=== PATIENT | female | born 1960 | race Caucasian/White ===

== ENCOUNTER 2018-06-24 15:51 | Observation (INO) | payer OTHER ==
[2018-06-24] MEDS ORDERED: Sodium Chloride 0.9% 10 ML Syringe FLUSH PRN (15:55)
--- NOTE | 2018-06-24 16:20 | EDM.PDOC ---
ED HPI GENERAL MEDICAL PROBLEM - General Chief Complaint: General Time Seen by Provider: 06/24/18 15:51 Source of Information: Reports: Patient History Limitations: Reports: No Limitations - History of Present Illness INITIAL COMMENTS - FREE TEXT/NARRATIVE: Pt. presents to ER with complaints of R sided facial paresthesia. Pt. states that she was at work today at [employer] at the onset of symptoms. Denies any recent head trauma. Pt. had a CVA involving the L basal ganglia 05/22/18. She was admitted to [facility] at the time. She did not receive any TPA at that time and did not undergo any intervention from a neurological standpoint. In reviewing her chart, it appears that there was no large vessel ischemia noted. The pt. has a history of factor 5 leiden and has a history of previous subclavian DVT. Pt. was started on baby aspirin and lipitor at discharge. She has yet to follow-up with neurology but is scheduled to in the near future. Pt. has been doing PT and states that the symptoms have been gradually improving. She states that today at approx. 1430 PM she developed increased paresthesia to R side of face and hand as well as nausea. The symptoms quickly resolved. She subsequently came to the clinic and had another similar episode whilst she was waiting to be seen in the clinic lobby. Pt. was brought to the ER , and her symptoms had resolved by the time she got here. She has had no increase in weakness, difficulty with speech, ambulation or increased facial numbness since she arrived to the ER (other than the paresthesia that she has been experiencing since the initial event). Onset: Today Onset Time: 14:30 Location: Reports: Head, Generalized Associated Symptoms: Reports: Nausea/Vomiting - Related Data Allergies Allergy/AdvReac Type Severity Reaction Status Date / Time Penicillins Allergy Rash Verified 06/24/18 16:00 Home Meds: Home Meds Aspirin [Ecotrin] 325 mg PO BEDTIME #100 tab.ec 06/11/13 [Rx] Enoxaparin [Lovenox] 40 mg SUBCUT DAILY #30 syringe 06/11/13 [Rx] ED ROS GENERAL - Review of Systems Review Of Systems: See Below Constitutional: Reports: No Symptoms HEENT: Reports: No Symptoms Respiratory: Reports: No Symptoms Cardiovascular: Reports: No Symptoms Endocrine: Reports: No Symptoms GI/Abdominal: Reports: No Symptoms : Reports: No Symptoms Musculoskeletal: Reports: No Symptoms Skin: Reports: No Symptoms Neurological: Reports: Paresthesia (R side of face/R hand), Tingling, Other Psychiatric: Reports: No Symptoms Hematologic/Lymphatic: Reports: No Symptoms Immunologic: Reports: No Symptoms ED EXAM, GENERAL - Physical Exam Exam: See Below Exam Limited By: No Limitations General Appearance: Alert, WD/WN, No Apparent Distress Eye Exam: Bilateral Eye: EOMI, Normal Fundi, Normal Inspection Throat/Mouth: Normal Inspection, Normal Lips, Normal Teeth, Normal Gums, Normal Oropharynx, Normal Voice, No Airway Compromise Head: Atraumatic, Normocephalic Neck: Normal Inspection, Supple, Non-Tender, Full Range of Motion Respiratory/Chest: No Respiratory Distress, Lungs Clear, Normal Breath Sounds, No Accessory Muscle Use, Chest Non-Tender Cardiovascular: Normal Peripheral Pulses, Regular Rate, Rhythm, No Edema, No Gallop, No JVD, No Murmur, No Rub Peripheral Pulses: 4+: Radial (L), Radial (R), Posterior Tibial (L), Posterior Tibial (R) GI/Abdominal: Soft, Non-Tender, No Organomegaly, No Distention, No Mass (Female) Exam: Deferred Rectal (Female) Exam: Deferred Back Exam: Normal Inspection, Full Range of Motion Extremities: Normal Inspection, Normal Range of Motion, Non-Tender, No Pedal Edema, Normal Capillary Refill Neurological: Alert, Oriented, Normal Cognition, Sensory/Motor Deficit ( paresthesia to R side of face and R hand, no increase from previous at this time. NIH is 1.) Psychiatric: Normal Affect, Normal Mood Skin Exam: Warm, Dry, Intact, Normal Color, No Rash Lymphatic: No Adenopathy EKG INTERPRETATION Rhythm: NSR Rudyard: Normal P-Wave: Present QRS: Normal ST-T: Normal QT: Normal Course - Vital Signs Last Recorded V/S: Last Vital Signs Temp 36.8 C 06/24/18 15:51 Pulse 71 06/24/18 17:21 Resp 14 06/24/18 17:21 BP 152/96 H 06/24/18 17:21 Pulse Ox 97 06/24/18 17:21 - Orders/Labs/Meds Orders: Active Orders 24 hr Category Date Time Status EKG Documentation Completion [RC] STAT Care 06/24/18 15:56 Active Ang Head [CT] Stat Exams 06/24/18 17:18 Ordered Ang Neck [CT] Stat Exams 06/24/18 17:18 Ordered Sodium Chloride 0.9% [Saline Flush] Med 06/24/18 15:55 Active 10 ml FLUSH ASDIRECTED PRN Peripheral IV Insertion Adult [OM.PC] Routine Oth 06/24/18 15:56 Ordered Medication Orders Sodium Chloride (Normal Saline) 1,000 mls @ 100 mls/hr IV ASDIRECTED CHRIS Sodium Chloride (Saline Flush) 10 ml FLUSH ASDIRECTED PRN PRN Reason: Keep Vein Open Labs: Laboratory Tests 06/24/18 06/24/18 06/24/18 Range/Units 16:17 16:17 16:17 WBC 4.5 (4.0-10.0) x10^3/uL RBC 4.40 (4.00-5.50) x10^6/uL Hgb 13.6 (12.0-16.0) g/dL Hct 39.8 (33.0-47.0) % MCV 90.5 (78.0-93.0) fL MCH 30.9 (26.0-32.0) pg MCHC 34.2 (32.0-36.0) g/dL RDW Coeff of Osbaldo 12.4 (10.0-15.0) % Plt Count 260 (130-400) x10^3/uL Neut % (Auto) 64.0 (50.0-80.0) % Lymph % (Auto) 26.3 (25.0-50.0) % [place] % (Auto) 6.9 (2.0-11.0) % Eos % (Auto) 2.4 (0.0-4.0) % Baso % (Auto) 0.4 (0.2-1.2) % PT 10.2 (9.6-11.4) SEC INR 1.0 L (2.0-3.5) Sodium 143 (136-145) mmol/L Potassium 3.7 (3.5-5.1) mmol/L Chloride 104 (98-107) mmol/L Carbon Dioxide 29 (21-32) mmol/L Anion Gap 13.7 (10-20) mmol/L BUN 15 (7-18) mg/dL Creatinine 0.9 (0.55-1.02) mg/dL Est Cr Clr Drug Dosing TNP Estimated GFR (MDRD) > 60 Glucose 137 H (74-106) mg/dL Calcium 9.3 (8.5-10.1) mg/dL Corrected Calcium 9.30 (8.5-10.1) mg/dL Phosphorus 3.2 (2.6-4.7) mg/dL Magnesium 2.1 (1.8-2.4) mg/dL Total Bilirubin 0.5 (0.2-1.0) mg/dL AST 23 (15-37) U/L ALT 46 (14-59) U/L Alkaline Phosphatase 58 (46-116) U/L Troponin I < 0.017 (<=0.056) ng/mL Total Protein 7.4 (6.4-8.2) g/dL Albumin 4.0 (3.4-5.0) g/dL Globulin 3.4 Albumin/Globulin Ratio 1.18 Meds: Medications Generic Name Dose Route Start Last Admin Trade Name Freq PRN Reason Stop Dose Admin Sodium Chloride 1,000 mls @ 100 mls/hr 06/24/18 17:45 Normal Saline IV ASDIRECTED CHRIS Sodium Chloride 10 ml 06/24/18 15:55 Saline Flush FLUSH ASDIRECTED PRN Keep Vein Open Departure - Departure Time of Disposition: 17:36 Disposition: Refer to Observation Clinical Impression: TIA (transient ischemic attack) - Discharge Information - Problem List Review Problem List Initiated/Reviewed/Updated: Yes - My Orders Last 24 Hours: My Active Orders 06/24/18 15:55 Sodium Chloride 0.9% [Saline Flush] 10 ml FLUSH ASDIRECTED PRN 06/24/18 15:56 EKG Documentation Completion [RC] STAT Peripheral IV Insertion Adult [OM.PC] Routine 06/24/18 17:18 Ang Head [CT] Stat Ang Neck [CT] Stat - Assessment/Plan Last 24 Hours: My Active Orders 06/24/18 15:55 Sodium Chloride 0.9% [Saline Flush] 10 ml FLUSH ASDIRECTED PRN 06/24/18 15:56 EKG Documentation Completion [RC] STAT Peripheral IV Insertion Adult [OM.PC] Routine 06/24/18 17:18 Ang Head [CT] Stat Ang Neck [CT] Stat Plan: Spoke with Dr. Broderick at [facility]. He advised performing a CT angiogram of the brain as an inpatient and admitting for observation. She is a code 1. Will be HOB less than 30 degree elevation. Permissive hypertension at this point. Advised no change to medications at this time and reevaluating in the AM. Neuro checks every 2 hours. Lovenox for DVT prophylaxis. Should her symptoms worsen, she will need to be transferred. She is not a candidate for TPA due to her recent CVA.
[2018-06-24 16:48] LABS: CHLORIDE,CL 104 mmol/L (98-107); SODIUM,NA 143 mmol/L (136-145)
[2018-06-24 16:49] LABS: ANION GAP 13.7 mmol/L (10-20)
--- NOTE | 2018-06-24 17:05 | CT ---
[id number] CT/CT Head WO IV EXAM: CT Head WO IV CLINICAL DATA: RIGHT SIDED FACIAL NUMBNESS,RECENT HISTORY OF CVA. COMPARISON STUDY: May 2013. FINDINGS: No intracranial hemorrhage, extra-axial fluid collection, mass, or acute ischemia. No hydrocephalus. Paranasal sinuses and mastoid air cells are clear. IMPRESSION: Negative examination of the brain. Aguila Rodríguez MD 06/24/18 [id number] Thank you for allowing us to participate in the care of your patient.
[2018-06-24] MEDS ORDERED: Iopamidol 612 MG/ML 100 ML Bottle IVPUSH ONE (17:57)
[2018-06-24] MEDS: Sodium Chloride 0.9% 1,000 ML IV SCH (18:10)
[2018-06-24] MEDS ORDERED: Enoxaparin 40 MG/0.4 ML Syringe SUBCUT SCH (18:45)
[2018-06-24] MEDS ORDERED: atorvaSTATin 40 MG Tab PO SCH (20:00)
[2018-06-24] MEDS ORDERED: Aspirin 81 MG Tab.EC PO SCH (20:00)
--- NOTE | 2018-06-24 20:30 | CT ---
[id number] CT/CTA Head EXAM: CTA Head CLINICAL DATA: RIGHT-SIDED FACIAL AND HAND NUMBNESS. COMPARISON STUDY: CT from today. FINDINGS: Negative for acute large vessel occlusion, stenosis, aneurysm, or dissection. Soft tissues of the neck are unremarkable. Lung apices and screw mediastinum are also unremarkable. Mild/moderate changes of cervical spondylosis. IMPRESSION: Negative angiographic examination of the head and neck. Aguila Rodríguez MD 06/24/182026 Thank you for allowing us to participate in the care of your patient.
[2018-06-24] MEDS ORDERED: diphenhydrAMINE 25 MG Cap PO STA (22:36)
[2018-06-25] MEDS: Sodium Chloride 0.9% 1,000 ML IV SCH (02:09)
[2018-06-25] MEDS ORDERED: Vitamin E (dl-alpha-tocopherol acetate) 400 Unit Cap PO SCH (08:00)
[2018-06-25] MEDS ORDERED: Ascorbic Acid 500 MG Tab PO SCH (08:00)
[2018-06-25] MEDS ORDERED: atorvaSTATin 40 MG Tab PO SCH (08:00)
[2018-06-25] MEDS ORDERED: Aspirin 81 MG Tab.EC PO SCH (08:00)
[2018-06-25] MEDS ORDERED: Venlafaxine 37.5 MG Cap.ER PO SCH (08:00)
[2018-06-25] MEDS ORDERED: Calcium Carbonate/Vitamin D3 1250 MG-200 Unit Tab PO SCH (08:00)
[2018-06-25] MEDS ORDERED: Multivitamin, Stress Formula with Zinc Tab PO SCH (08:00)
--- NOTE | 2018-06-25 10:27 | PCM.DCSUM1 ---
Discharge Summary - Hospital Course Brief History: Patient admitted for observation after numbness to right side of her face. History of ischemic stroke in April. CTA of head and neck performed which was negative for acute activity. Symptoms have resolved and patient has negative neuro checks and is ready to be discharged home Diagnosis: Stroke: Yes Modified Almont Scale: No Signif.Disability Despite Sympt.Able to Carry Out Usual Act./Duties Modified Almont Scale Score: 1 - Discharge Data Discharge Date: 06/25/18 Discharge Disposition: Home, Self-Care 01 Condition: Good - Discharge Diagnosis/Problem(s) (1) Factor V Leiden mutation SNOMED Code(s): 448677430 ICD Code: D68.51 - ACTIVATED PROTEIN C RESISTANCE Status: Acute Current Visit: No (2) TIA (transient ischemic attack) SNOMED Code(s): 328259837 ICD Code: G45.9 - TRANSIENT CEREBRAL ISCHEMIC ATTACK, UNSPECIFIED Status: Acute Current Visit: Yes - Patient Summary/Data Recommended Follow-up Testing/Procedures: Make sure to keep your primary care and neurology appointments and schedule additional appointment as needed Make sure to get to your echocardiogram this week - Patient Instructions Diet: Heart Healthy Diet Activity: No Strenuous Activities, Rest and Relax Today Activity, Other: No work this week. Slowly return to work as you are able. Showering/Bathing: May Shower Other/Special Instructions: You need to allow your body to fully heal and recover from the damage you had from your stroke in April. If not you do run the risk of bringing on additional symptoms like you experienced yesterday. No work this week and slowly return as you feel you are able with no more than half days to start with. - Discharge Plan *PRESCRIPTION DRUG MONITORING PROGRAM REVIEWED*: Not Applicable *COPY OF PRESCRIPTION DRUG MONITORING REPORT IN PATIENT ATTILA: Not Applicable Home Medications: Home Meds Ascorbate Calcium [Vitamin C] 500 mg PO DAILY 06/24/18 [History] Aspirin 81 mg PO DAILY 06/24/18 [History] Calcium Carbonate/Vitamin D2 [Oyster Shell Calcium-Vit D Tab] 1 each PO DAILY [History] Multivitamin [Multivitamins] 1 each PO DAILY 06/24/18 [History] Venlafaxine [Effexor XR 24 Hr] 37.5 mg PO DAILY 06/24/18 [History] Vitamin E 400 unit PO DAILY 06/24/18 [History] atorvaSTATin Calcium [Lipitor] 40 mg PO DAILY 06/24/18 [History] Forms: ED Department Discharge Referrals: Tresa Melendez MD [Primary Care Provider] - - Discharge Summary/Plan Comment DC Time >30 min.: Yes - General Info Date of Service: 06/25/18 Admission Dx/Problem (Free Text: transient ischemic attack Functional Status: Reports: Pain Controlled - Review of Systems General: Reports: No Symptoms HEENT: Reports: No Symptoms Pulmonary: Reports: No Symptoms Cardiovascular: Reports: No Symptoms Gastrointestinal: Reports: No Symptoms Genitourinary: Reports: No Symptoms Musculoskeletal: Reports: No Symptoms Skin: Reports: No Symptoms Neurological: Reports: No Symptoms Psychiatric: Reports: No Symptoms - Patient Data Vitals - Most Recent: Last Vital Signs Temp 36.3 C 06/25/18 06:00 Pulse 75 06/25/18 06:00 Resp 16 06/25/18 06:00 BP 151/78 H 06/25/18 06:00 Pulse Ox 99 06/25/18 06:00 Weight - Most Recent: 80.286 kg I&O - Last 24 hours: Intake & Output 06/24/18 06/25/18 06/25/18 22:59 06:59 14:59 Intake Total 1539 180 Output Total 1700 Balance -161 180 Lab Results - Last 24 hrs: Laboratory Results - last 24 hr 06/24/18 06/24/18 06/24/18 Range/Units 16:17 16:17 16:17 WBC 4.5 (4.0-10.0) x10^3/uL RBC 4.40 (4.00-5.50) x10^6/uL Hgb 13.6 (12.0-16.0) g/dL Hct 39.8 (33.0-47.0) % MCV 90.5 (78.0-93.0) fL MCH 30.9 (26.0-32.0) pg MCHC 34.2 (32.0-36.0) g/dL RDW Coeff of Osbaldo 12.4 (10.0-15.0) % Plt Count 260 (130-400) x10^3/uL Neut % (Auto) 64.0 (50.0-80.0) % Lymph % (Auto) 26.3 (25.0-50.0) % Lyman % (Auto) 6.9 (2.0-11.0) % Eos % (Auto) 2.4 (0.0-4.0) % Baso % (Auto) 0.4 (0.2-1.2) % PT 10.2 (9.6-11.4) SEC INR 1.0 L (2.0-3.5) Sodium 143 (136-145) mmol/L Potassium 3.7 (3.5-5.1) mmol/L Chloride 104 (98-107) mmol/L Carbon Dioxide 29 (21-32) mmol/L Anion Gap 13.7 (10-20) mmol/L BUN 15 (7-18) mg/dL Creatinine 0.9 (0.55-1.02) mg/dL Est Cr Clr Drug Dosing TNP Estimated GFR (MDRD) > 60 Glucose 137 H (74-106) mg/dL Calcium 9.3 (8.5-10.1) mg/dL Corrected Calcium 9.30 (8.5-10.1) mg/dL Phosphorus 3.2 (2.6-4.7) mg/dL Magnesium 2.1 (1.8-2.4) mg/dL Total Bilirubin 0.5 (0.2-1.0) mg/dL AST 23 (15-37) U/L ALT 46 (14-59) U/L Alkaline Phosphatase 58 (46-116) U/L Troponin I < 0.017 (<=0.056) ng/mL Total Protein 7.4 (6.4-8.2) g/dL Albumin 4.0 (3.4-5.0) g/dL Globulin 3.4 Albumin/Globulin Ratio 1.18 06/25/18 Range/Units 07:10 WBC 4.0 (4.0-10.0) x10^3/uL RBC 4.20 (4.00-5.50) x10^6/uL Hgb 13.1 (12.0-16.0) g/dL Hct 38.7 (33.0-47.0) % MCV 92.1 (78.0-93.0) fL MCH 31.2 (26.0-32.0) pg MCHC 33.9 (32.0-36.0) g/dL RDW Coeff of Osbaldo 12.2 (10.0-15.0) % Plt Count 247 (130-400) x10^3/uL Neut % (Auto) (50.0-80.0) % Lymph % (Auto) (25.0-50.0) % [place]yman % (Auto) (2.0-11.0) % Eos % (Auto) (0.0-4.0) % Baso % (Auto) (0.2-1.2) % PT (9.6-11.4) SEC INR (2.0-3.5) Sodium (136-145) mmol/L Potassium (3.5-5.1) mmol/L Chloride (98-107) mmol/L Carbon Dioxide (21-32) mmol/L Anion Gap (10-20) mmol/L BUN (7-18) mg/dL Creatinine (0.55-1.02) mg/dL Est Cr Clr Drug Dosing Estimated GFR (MDRD) Glucose (74-106) mg/dL Calcium (8.5-10.1) mg/dL Corrected Calcium (8.5-10.1) mg/dL Phosphorus (2.6-4.7) mg/dL Magnesium (1.8-2.4) mg/dL Total Bilirubin (0.2-1.0) mg/dL AST (15-37) U/L ALT (14-59) U/L Alkaline Phosphatase (46-116) U/L Troponin I (<=0.056) ng/mL Total Protein (6.4-8.2) g/dL Albumin (3.4-5.0) g/dL Globulin Albumin/Globulin Ratio Med Orders - Current: Current Medications Ascorbic Acid (Vitamin C) 500 mg PO DAILY [facility] Last Admin: 06/25/18 08:05 Dose: 500 mg Aspirin (Halfprin) 81 mg PO QPM [facility] Last Admin: 06/24/18 19:36 Dose: 81 mg Atorvastatin Calcium (Lipitor) 40 mg PO QPM [facility] Last Admin: 06/24/18 19:35 Dose: 40 mg Calcium Carbonate (Calcium Carbonate/Vitamin D 1250 Mg-200 Unit) 1 tab PO DAILY [facility] Last Admin: 06/25/18 08:05 Dose: 1 tab Enoxaparin Sodium (Lovenox) 40 mg SUBCUT Q24H [facility] Last Admin: 03/29/19 19:35 Dose: 40 mg Sodium Chloride (Normal Saline) 1,000 mls @ 100 mls/hr IV ASDIRECTED [facility] Last Admin: 06/25/18 02:09 Dose: 100 mls/hr Sodium Chloride (Saline Flush) 10 ml FLUSH ASDIRECTED PRN PRN Reason: Keep Vein Open Venlafaxine HCl (Effexor Xr) 37.5 mg PO DAILY [facility] Last Admin: 06/25/18 08:22 Dose: Not Given Vitamin B Complex/Vit C/Vit E/Zinc (Stress Formula With Zinc) 1 tab PO DAILY [facility] Last Admin: 06/25/18 08:05 Dose: 1 tab Vitamin E (Vitamin E) 400 units PO DAILY [facility] Last Admin: 06/25/18 08:05 Dose: 400 units Discontinued Medications Aspirin (Halfprin) 81 mg PO DAILY [facility] Atorvastatin Calcium (Lipitor) 40 mg PO DAILY [facility] Diphenhydramine HCl (Benadryl) 25 mg PO BEDTIME STA Stop: 06/24/18 22:37 Last Admin: 06/24/18 22:58 Dose: 25 mg Iopamidol (Isovue-300 (61%)) 100 ml IVPUSH ONETIME ONE Stop: 06/24/18 17:58 Last Admin: 06/24/18 18:12 Dose: 100 ml - Exam General: Reports: Alert, Oriented, Cooperative, No Acute Distress HEENT: Reports: Pupils Equal, Pupils Reactive, EOMI Neck: Reports: Supple Lungs: Reports: Clear to Auscultation, Normal Respiratory Effort Cardiovascular: Reports: Regular Rate, Regular Rhythm GI/Abdominal Exam: Normal Bowel Sounds, Soft, Non-Tender, No Organomegaly, No Distention, No Abnormal Bruit, No Mass, Pelvis Stable Back Exam: Reports: Normal Inspection, Full Range of Motion Extremities: Normal Inspection, Normal Range of Motion, Non-Tender, No Pedal Edema, Normal Capillary Refill Skin: Reports: Warm, Dry, Intact Neurological: Reports: No New Focal Deficit Psy/Mental Status: Reports: Alert, Normal Affect, Normal Mood
== END 2018-06-25 10:50 | disposition home or self-care (01) ==
LOC: VM.ED 15:51 → VM.MS 17:21
PROVIDERS: ADMIT Physician Assistant; ATTEND Physician Assistant
DX: G45.9 Transient cerebral ischemic attack, unspecified (principal); D68.51 Activated protein C resistance; Z86.73 Personal history of transient ischemic attack (TIA), and cerebral infarction without residual deficits; Z79.82 Long term (current) use of aspirin; Z79.899 Other long term (current) drug therapy
CPT/HCPCS: 36415; 70450; 70496; 80053; 83735; 84100; 84484; 85025; 85027; 85610; 93005; 99285; A9270; J1650; J7030; Q9967; 96360; 96361; 96372; G0378